=== PATIENT | female | born 1970 | race Two or more races ===

== ENCOUNTER → 2024-09-08 | Outpatient (CLI) | payer BC, SELFPAY ==
[2024-09-08 13:01] LABS: Misc Send Out* See Sep Rpt
[2024-09-08 13:33] LABS: Basophils # (Auto) 0.1 Thou/mm3 (0.0-0.2); Basophils % (Auto) 1 % (0-2.5); Eosinophils # (Auto) 0.1 Thou/mm3 (0.0-0.5); Eosinophils % (Auto) 1 % (0-10); Hematocrit 33.7 % (36.0-46.0); Hemoglobin 10.5 g/dL (12.0-16.0); Immature Granulocytes % (Auto) 0 % (0-0); Immature Granulocytes Auto 0.01 Thou/mm3 (0.00-0.00); Lymphocytes # (Auto) 1.6 Thou/mm3 (1.0-4.8); Lymphocytes % (Auto) 33 % (10-50); Mean Corpuscular HGB Conc 31.2 g/dl (31.0-37.0); Mean Corpuscular Hemoglobin 25.4 pg (25.0-35.0); Mean Corpuscular Volume 82 fL (80-100); Monocytes # (Auto) 0.4 Thou/mm3 (0.0-0.8); Monocytes % (Auto) 7 % (0-12); Neutrophils # (Auto) 2.8 Thou/mm3 (1.8-7.7); Neutrophils % (Auto) 57 % (37-80); Nucleated Red Blood Cell % 0 /100 WBC (0); Platelet Count 360 Thou/mm3 (140-440); Red Blood Count 4.13 Miln/mm3 (4.00-5.20); White Blood Count 4.9 Thou/mm3 (3.6-11.0)
[2024-09-08 13:47] LABS: Parathyroid Hormone Intact 48.7 pg/ml (18.5-88.0)
[2024-09-08 13:51] LABS: Ferritin 5 ng/mL (7.3-270.7); Iron 29 mcg/dL (50-170); Percent Iron Saturation 6 % (20-55); Total Iron Binding Capacity 451 mcg/dL (250-425); Unsaturated Iron Binding 422 (225-295)
[2024-09-08 13:55] LABS: Folate > 24.00 ng/mL (>5.38); Vitamin B12 829 pg/mL (211-911); Vitamin D 25 Hydroxy Total 19.6 ng/mL (7.3-40.2)
[2024-09-08 14:01] LABS: Alanine Aminotransferase 25 U/L (10-49); Albumin/Globulin Ratio 1.7 (1.2-2.2); Alkaline Phosphatase 122 U/L (46-116); Anion Gap 8 (7-16); Aspartate Amino Transferase 23 U/L (0-34); BUN/Creatinine Ratio 18 Ratio (12-20); Bilirubin,Total 0.6 mg/dL (0.3-1.2); Blood Urea Nitrogen 11 mg/dL (9-23); Calcium 9.2 mg/dL (8.3-10.6); Calcium (Corrected) 9.2 mg/dL (8.5-10.1); Carbon Dioxide 25.6 mMol/L (20.0-31.0); Cardiac Risk Estimate 2.4 RATIO (3.7-5.6); Chloride 106 mMol/L (98-107); Cholesterol 168 mg/dL (132-200); Creatinine (Component) 0.6 mg/dL (0.6-1.3); Globulin 2.4 gm/dL (2.3-3.5); Glucose 98 mg/dL (74-106); HDL Cholesterol 71 mg/dL (40-60); LDL Cholesterol,Calculated 83 mg/dL (0-130); Osmolality,Calculated 278 (275-295); Potassium 3.9 mMol/L (3.4-5.1); Sodium 140 mMol/L (136-145); Total Protein 6.4 gm/dL (5.7-8.2); Triglycerides 68 mg/dL (30-150); eGFR > 60 See Note
== END | disposition home or self-care (01) ==
LOC: COPL 12:30
PROVIDERS: PCP Specialist; Referring Provider Specialist; Visit Provider Specialist
DX: E21.1 Secondary hyperparathyroidism, not elsewhere classified (principal); Z98.84 Bariatric surgery status
CPT/HCPCS: 36415; 80053; 80061; 82306; 82607; 82728; 82746; 83540; 83550; 83970; 85025

== ENCOUNTER → 2024-09-11 | Outpatient (CLI) | payer BC, SELFPAY ==
--- NOTE | 2024-09-11 09:07 | XR_ITS ---
Examination: Duplex scan of the lower extremity, unilateral right complete Date and time of exam: September 11, 2024 0915 hrs. Indications: Right leg pain beginning 3 years ago Technique: Duplex scan of the extremity veins using B-mode/grayscale imaging and Doppler spectral analysis and color flow Attention is directed to internal echogenicity, compression and augmentation involving these veins, color flow assessment, spectral analysis Findings: Major deep venous structures in the extremity demonstrate normal course and caliber. There is no evidence of deep vein thrombosis. Normal color flow and spectral analysis Impression: Negative for DVT..
== END | disposition home or self-care (01) ==
LOC: CDIM 08:36
PROVIDERS: PCP Specialist; Referring Provider Specialist; Visit Provider Specialist
DX: R25.2 Cramp and spasm (principal)
CPT/HCPCS: 93971

== ENCOUNTER → 2024-10-27 | Outpatient (CLI) | payer BC, SELFPAY ==
--- NOTE | 2024-10-27 12:00 | XR_ITS ---
Examination: Bone densitometry Date and time of exam:October 27, 2024 1211 hours INDICATIONS: Hysterectomy age 33, family history, mother hip fracture and osteoporosis, vitamin D 2 years, personal history osteopenia Technique: Lumbar spine and hip total bone mineralization values of an calculated. Peak reference and age match control results have been displayed. Findings: Lumbar spine total bone mineralization is0.933 gm/cm2. This is 1.0 standard deviations below peak reference. This is 0.1 standard deviations above age-matched controls. Hip total bone mineralization is 0.752 gm/cm2 This is 1.6 standard deviations below peak reference. This is 0.9 standard deviations below age-matched controls Impression: There is normal mineralization based on lumbar spine measurements. There is osteopenia based on hip measurements Lumbar mineralization is decreased 7.6% compared with October 24, 2022 Hip mineralization is increased 1.6% compared with October 24, 2022
[2024-10-27 13:43] LABS: Basophils # (Auto) 0.1 Thou/mm3 (0.0-0.2); Basophils % (Auto) 1 % (0-2.5); Eosinophils # (Auto) 0.1 Thou/mm3 (0.0-0.5); Eosinophils % (Auto) 2 % (0-10); Hematocrit 38.4 % (36.0-46.0); Hemoglobin 12.5 g/dL (12.0-16.0); Immature Granulocytes % (Auto) 0 % (0-0); Immature Granulocytes Auto 0.01 Thou/mm3 (0.00-0.00); Immature Reticulocyte Fraction 7.8 % (3.0-15.9); Lymphocytes # (Auto) 1.9 Thou/mm3 (1.0-4.8); Lymphocytes % (Auto) 29 % (10-50); Mean Corpuscular HGB Conc 32.6 g/dl (31.0-37.0); Mean Corpuscular Hemoglobin 28.7 pg (25.0-35.0); Mean Corpuscular Volume 88 fL (80-100); Monocytes # (Auto) 0.5 Thou/mm3 (0.0-0.8); Monocytes % (Auto) 7 % (0-12); Neutrophils # (Auto) 3.9 Thou/mm3 (1.8-7.7); Neutrophils % (Auto) 61 % (37-80); Nucleated Red Blood Cell % 0 /100 WBC (0); Platelet Count 264 Thou/mm3 (140-440); RDW Standard Deviation 67.4 fL (36.4-46.3); Red Blood Count 4.35 Miln/mm3 (4.00-5.20); Reticulocyte % (Auto) 1.3 % (0.5-1.5); Reticulocyte Hgb Content 36.2 pg (28.0-35.0); White Blood Count 6.4 Thou/mm3 (3.6-11.0)
[2024-10-27 14:05] LABS: Iron 103 mcg/dL (50-170); Percent Iron Saturation 24 % (20-55); Total Iron Binding Capacity 419 mcg/dL (250-425); Unsaturated Iron Binding 316 (225-295)
== END | disposition home or self-care (01) ==
LOC: CDIM 11:44 → COPL 12:10
PROVIDERS: Referring Provider Specialist; Visit Provider Radiology Diagnostic Radiology
DX: M85.88 Other specified disorders of bone density and structure, other site (principal); D50.8 Other iron deficiency anemias
CPT/HCPCS: 36415; 77080; 83540; 83550; 85025; 85046

== ENCOUNTER → 2025-04-28 | Outpatient (CLI) | payer BC, SELFPAY ==
--- NOTE | 2025-04-28 09:45 | XR_ITS ---
Examination: Screening digital mammography, bilateral Computer aided detection 3-D breast Tomosynthesis, bilateral Date and time of exam: April 28, 2025, 0946 hours, comparison June 27, 2023 Indication: Screening Technique: Nonmagnified MLO, CC views of the breasts to been obtained, reconstructed from 3-D Tomosynthesis images. R2 computer aided detection program utilized for evaluation of suspicious masses and/or abnormal calcifications. 3-D Tomosynthesis images obtained. Findings: Scattered areas of fibroglandular density. Implants intact 4 mm nodular asymmetry upper left breast MLO view, 27 mm from the nipple Impression: BI-RADS Category 0: Incomplete: Need additional imaging evaluation 4 mm nodular asymmetry upper left breast MLO view, 27 cm from the nipple, recommend follow-up spot tomographic views retroareolar region left breast as well as bilateral breast sonography to complete the work-up.
== END | disposition home or self-care (01) ==
LOC: CDIM 09:32
PROVIDERS: Referring Provider Specialist; Visit Provider Specialist
DX: Z12.31 Encounter for screening mammogram for malignant neoplasm of breast (principal); R92.8 Other abnormal and inconclusive findings on diagnostic imaging of breast; N64.89 Other specified disorders of breast
CPT/HCPCS: 77063; 77067

== ENCOUNTER → 2025-05-03 | Outpatient (CLI) | payer BC, SELFPAY ==
--- NOTE | 2025-05-03 15:05 | XR_ITS ---
Examination: Diagnostic digital mammography, unilateral, left Computer aided detection 3-D breast Tomosynthesis, unilateral Date and time of exam: May 03, 2025, 1608 hours INDICATIONS: Mammogram April 28, 2025 4 mm nodular asymmetry upper left breast on the MLO view Technique: Nonmagnified MLO, CC views of the left breast have been obtained, reconstructed from 3-D Tomosynthesis images. R2 computer aided detection program utilized for evaluation of suspicious masses and/or abnormal calcifications. 3-D Tomosynthesis images obtained. Findings: Scattered areas of fibroglandular density Stable focal asymmetry upper outer left breast Impression: BI-RADS category 3: Probably benign findings Recommend 1 additional 6-month left mammogram follow-up
--- NOTE | 2025-05-03 15:19 | XR_ITS ---
Examination: Breast ultrasound complete, bilateral Date and time of exam: May 03, 2025, 1535 hours INDICATIONS: Mammogram April 28, 2025 4 mm nodular asymmetry upper left breast MLO view 27 mm from the nipple Technique: Real-time grayscale ultrasonographic imaging bilateral breasts, including all 4 quadrants as well as nipple retroareolar and axillary regions. Findings: Sonographic images right and left breast demonstrate no cystic or solid masses IMPRESSION: BI-RADS Category 1: Negative study
== END | disposition home or self-care (01) ==
LOC: CDIM 14:56
PROVIDERS: PCP Specialist; Referring Provider Specialist; Visit Provider Specialist
DX: R92.332 Mammographic heterogeneous density, left breast (principal)
CPT/HCPCS: 76641; 77061; 77065; G0279